=== PATIENT | female | born 1995 | race Caucasian/White ===

== ENCOUNTER 2020-11-11 09:27 | Emergency (ER) | payer OTHER, SELFPAY ==
[2020-11-11 09:32] VITALS: BP 125/69; PULSE 87; RESP 20; TEMP 36.8; O2SAT 100
--- NOTE | 2020-11-11 10:31 | ED.SKABFB ---
HPI - Skin/Abscess/Foreign Bdy General Chief complaint: Skin/Abscess/Foreign Body Stated complaint: Swelling on left inner thigh, boil Time Seen by Provider: 11/11/20 09:45 Source: patient and RN notes reviewed History of Present Illness HPI narrative: 25 year old female who present to express care with complaints of having boil type of lesion to her left upper inner thigh for the past 1 week duration. Patient reports that last evening area open and drained purulent matter, has been applying antibiotic ointment to area. Patient denies any fevers, chills or sweats, denies any nausea or vomiting or diarrhea. Patient reports that pain is 7/10 to area and describes pain as throbbing. MD complaint: abscess/boil Related Data Allergies Allergy/AdvReac Type Severity Reaction Status Date / Time No Known Allergies Allergy Verified 11/11/20 09:49 Review of Systems Review of Systems: CONSTITUTIONAL: Denies fever, chills, or sweats. EYES: Denies visual changes, redness, or discharge. ENT: Denies rhinorrhea, congestion, sore throat, or otalgia. CARDIOVASCULAR: Denies chest pain, palpitations, or edema. RESPIRATORY: Denies cough or dyspnea. GASTROINTESTINAL: Denies abdominal pain, nausea, vomiting, or diarrhea. GENITOURINARY: Denies dysuria or hematuria. SKIN: Positive for boil type of lesion to left upper inner thigh. MUSCULOSKELETAL:Chronic neck and back pain,no other stated joint pain, or myalgia. NEUROLOGIC: Denies headache, numbness, or weakness. PSYCHIATRIC: Denies anxiety or depression. All systems reviewed & are unremarkable except as noted in HPI and below PMFSH Past Medical History Medical History (Updated 11/13/20 @ 09:40 by Lakisha Faustin NP) DDD (degenerative disc disease) Ruptured disc, cervical Ruptured lumbar disc Spinal stenosis Surgical History Surgical History (Updated 11/13/20 @ 09:31 by Lakisha Faustin NP) Previous section X2 Family History Family History (Updated 11/13/20 @ 09:32 by Lakisha Faustin NP) Mother Hypertension Social History Social History (Updated 11/13/20 @ 09:32 by Lakisha Faustin NP) Smoking packs per day: 0.5 Smoking cigarettes per day: 10.0 Years smoked: 10 Smoking pack-years: 5.00 Smoking status: Current every day smoker Tobacco type: cigarettes Alcohol intake: current Alcohol use details: social Substance use: current Substance use type: marijuana Living arrangements: with family Gender identity (if verbalized by the patient): Female Comments At time of signature, agree with nursing past medical, surgical, social and family history. There is no relevant family history pertinent to the presenting complaint Exam Narrative: GENERAL: Well-appearing, well-nourished, and in no acute distress. HEAD: Normocephalic, atraumatic. EYES: PERRLA and EOMI. ENT: Nares clear, no rhinorrhea or epistaxis. Mucous membranes moist.TM's norml with good light reflex, throat pink with no lesions or exudates no tonsil enlargement. NECK: Supple.no lymphadenopathy CHEST: Clear to auscultation. No respiratory distress.SAO2 100% on room air HEART: Regular rate and rhythm. No murmur heard. Normal peripheral pulses. ABDOMEN: Soft, nontender, nondistended, normal active bowel sounds. EXTREMITIES: Normal range of motion. No edema.Chronic neck and lumbar back pain, moves all extremities on own power with no stated numbness or tingling at present time, strong pulses. SKIN: Warm, dry, [id number] red area to left inner thigh with 0.5cm open lesion with minimal purulent drainage from area at present time, no induration of surrounding tissue or acute warmth. NEURO: No focal deficits. Alert and oriented x3. Course Vital Signs Vital signs: Vital Signs Temperature 36.8 C 11/11/20 09:32 Pulse Rate 87 11/11/20 09:32 Respiratory Rate 20 11/11/20 09:32 Blood Pressure 125/69 11/11/20 09:32 Pulse Oximetry 100 11/11/20 09:32 Temperature 36.8 C 11/11/20
== END 2020-11-11 10:42 | disposition home or self-care (01) ==
PROVIDERS: Emergency Provider Registered Nurse
DX: L02.224 Furuncle of groin (principal); F17.210 Nicotine dependence, cigarettes, uncomplicated; M48.00 Spinal stenosis, site unspecified
CPT/HCPCS: 99213; G0463

== ENCOUNTER 2021-03-07 14:32 | Emergency (ER) | payer OTHER, SELFPAY ==
[2021-03-07 14:37] VITALS: BP 133/73; PULSE 93; RESP 16; TEMP 37.3; O2SAT 99
--- NOTE | 2021-03-07 14:47 | ED.SKABFB ---
HPI - Skin/Abscess/Foreign Bdy General Chief complaint: Skin/Abscess/Foreign Body Stated complaint: right leg inner thigh boil Time Seen by Provider: 03/07/21 14:47 Source: patient and RN notes reviewed History of Present Illness HPI narrative: Patient is a 25-year-old female who presents to the urgent care with complaints of a abscess to the right inner thigh. Patient states that she noticed approximately 2 or 3 days ago and she has been using her mupirocin cream on the area and cleaning it with the prescription cleanser. Patient denies of any fever, chills, nausea or vomiting. Patient states that she may be and her last period was in December. Patient was also on Bactrim in October. No other acute complaints. No acute distress noted. Patient aware the plan of care. Some parts of this dictation were generated by voice recognition software and may contain typographical and/or grammatical inaccuracies. Related Data Allergies Allergy/AdvReac Type Severity Reaction Status Date / Time No Known Allergies Allergy Verified 03/07/21 14:47 Review of Systems Review of Systems: CONSTITUTIONAL: Denies fever, chills, or sweats. EYES: Denies visual changes, redness, or discharge. ENT: Denies rhinorrhea, congestion, sore throat, or otalgia. CARDIOVASCULAR: Denies chest pain, palpitations, or edema. RESPIRATORY: Denies cough or dyspnea. GASTROINTESTINAL: Denies abdominal pain, nausea, vomiting, or diarrhea. GENITOURINARY: Denies dysuria or hematuria. SKIN: Reports of an abscess to the right inner thigh MUSCULOSKELETAL: Denies back pain, joint pain, or myalgia. NEUROLOGIC: Denies headache, numbness, or weakness. All other systems reviewed are negative, except as documented in HPI. [facility] Past Medical History Medical History (Updated 03/07/21 @ 15:02 by KRISTIN Muller) DDD (degenerative disc disease) Ruptured disc, cervical Ruptured lumbar disc Spinal stenosis Surgical History Surgical History (Updated 11/13/20 @ 09:31 by Lakisha Faustin NP) Previous section X2 Family History Family History (Updated 11/13/20 @ 09:32 by Lakisha Faustin NP) Mother Hypertension Social History Social History (Updated 11/13/20 @ 09:32 by Lakisha Faustin NP) Smoking packs per day: 0.5 Smoking cigarettes per day: 10.0 Years smoked: 10 Smoking pack-years: 5.00 Smoking status: Current every day smoker Tobacco type: cigarettes Alcohol intake: current Alcohol use details: social Substance use: current Substance use type: marijuana Gender identity (if verbalized by the patient): Female Comments At the time of my signature, I reviewed and agree with the nursing past medical, surgical, social, and family history. There is no relevant family history pertinent to the patient complaint. Exam Narrative: GENERAL: This is a well-nourished, well-developed patient, in no apparent distress. HEAD: normocephalic, atraumatic. EYES: PERRL. Sclera clear/white. Vision is grossly intact. EARS: External ears normal NOSE: External nose normal with no obvious nasal discharge, nares without redness, no rhinorrhea. THROAT: Mucous membranes moist NECK: Neck supple CARDIOVASCULAR: Regular rate and rhythm without murmurs, gallops, or rubs. RESPIRATORY: Clear to auscultation. Breath sounds equal bilaterally. No wheezes, rales, or rhonchi. SKIN: 7 x 7 cm area of firm erythemic nonfluctuant abscess to the right medial thigh, 4 cm center NEURO: awake, alert, and oriented to person, place and time. There were no obvious focal neurologic abnormalities. EXTREMITIES: No clubbing, cyanosis, or edema. Course Course Level of Care: Express Care Visit Vital Signs Vital signs: Vital Signs Temperature 99.1 F 03/07/21 14:37 Pulse Rate 93 03/07/21 14:37 Respiratory Rate 16 03/07/21 14:37 Blood Pressure 133/73 03/07/21 14:37 Pulse Oximetry 99 03/07/21 14:37 Temperature 99.1 F 03/07/21 14
== END 2021-03-07 15:05 | disposition home or self-care (01) ==
PROVIDERS: Emergency Provider Nurse Practitioner Family
DX: O99.719 Diseases of the skin and subcutaneous tissue complicating pregnancy, unspecified trimester (principal); Z3A.00 Weeks of gestation of pregnancy not specified; L02.415 Cutaneous abscess of right lower limb; F17.210 Nicotine dependence, cigarettes, uncomplicated; M48.00 Spinal stenosis, site unspecified
CPT/HCPCS: 81003; 81025; 99213; G0463

== ENCOUNTER 2021-05-23 09:02 | Emergency (ER) | payer OTHER, SELFPAY ==
[2021-05-23 09:04] VITALS: BP 111/66; PULSE 85; RESP 20; TEMP 37.1; O2SAT 100
--- NOTE | 2021-05-23 09:41 | ED.SKABFB ---
HPI - Skin/Abscess/Foreign Bdy General Chief complaint: Skin/Abscess/Foreign Body Stated complaint: Skin Sore Time Seen by Provider: 05/23/21 09:30 Source: patient, RN notes reviewed and old records reviewed Mode of arrival: ambulatory Limitations: no limitations History of Present Illness HPI narrative: 25 year old female who presents to [facility] care with complaints of 2 day history of right inner groin abscess with surrounding redness with warmth. Patient has noted [id number] open draining lesion of purulent yellowish tinged drainage surrounding redness total of 15cm X 10cm of red warm tissue with no induration. Patient denies any known fevers, chills, or sweats. Patient states that she has been taking Tylenol for her discomfort. Patient has history of previous groin abscesses. MD complaint: abscess/boil (Right upper inner thigh) Onset (ago): day(s) (2) Related Data Home Medications Medication Instructions Recorded Confirmed baclofen 10 mg PO TID 05/23/21 05/23/21 Allergies Allergy/AdvReac Type Severity Reaction Status Date / Time No Known Allergies Allergy Verified 05/23/21 09:37 Review of Systems Review of Systems: CONSTITUTIONAL: Denies fever, chills, or sweats. EYES: Denies visual changes, redness, or discharge. ENT: Denies rhinorrhea, congestion, sore throat, or otalgia. CARDIOVASCULAR: Denies chest pain, palpitations, or edema. RESPIRATORY: Denies cough or dyspnea. GASTROINTESTINAL: Denies abdominal pain, nausea, vomiting, or diarrhea. GENITOURINARY: Denies dysuria or hematuria. SKIN: Positive for abscess to right upper inner thigh with purulent drainage with surrounding redness with discomfort to area. MUSCULOSKELETAL:Chronic back pain, joint pain, or myalgia. NEUROLOGIC: Denies headache, numbness, or weakness. PSYCHIATRIC: Denies anxiety or depression. All systems reviewed & are unremarkable except as noted in HPI and below PMFSH Past Medical History Medical History (Updated 05/23/21 @ 09:59 by Lakisha Faustin NP) DDD (degenerative disc disease) Ruptured disc, cervical Ruptured lumbar disc Spinal stenosis Surgical History Surgical History (Updated 11/13/20 @ 09:31 by Lakisha Faustin NP) Previous section X2 Family History Family History (Updated 11/13/20 @ 09:32 by Lakisha Faustin NP) Mother Hypertension Social History Social History (Updated 11/13/20 @ 09:32 by Lakisha Faustin NP) Smoking packs per day: 0.5 Smoking cigarettes per day: 10.0 Years smoked: 10 Smoking pack-years: 5.00 Smoking status: Current every day smoker Tobacco type: cigarettes Alcohol intake: current Alcohol use details: social Substance use: current Substance use type: marijuana Gender identity (if verbalized by the patient): Female Exam Narrative: GENERAL: Well-appearing, well-nourished, and in no acute distress. HEAD: Normocephalic, atraumatic. EYES: PERRLA and EOMI. ENT: Nares clear, no rhinorrhea or epistaxis. Mucous membranes moist.TM's normal with good light reflex, throat normal with no lesions or exudates or any tonsil swelling NECK: Supple.no lymphadenopathy CHEST: Clear to auscultation. No respiratory distress.SAO2 100% on room air HEART: Regular rate and rhythm. No murmur heard. Normal peripheral pulses. ABDOMEN: Soft, nontender, nondistended, normal active bowel sounds. EXTREMITIES: Normal range of motion. No edema. SKIN: Warm, dry, 15cm X 10cm red area to the inner right groin which is warm with no induration with inner 1cm X 1cm draining abscess of yellowish purulent drainage, site is painful. NEURO: No focal deficits. Alert and oriented x3. Course Course Level of Care: Express Care Visit Vital Signs Vital signs: Vital Signs Temperature 37.1 C 05/23/21 09:04 Pulse Rate 85 05/23/21 09:04 Respiratory Rate 20 05/23/21 09:04 Blood Pressure 111/66 05/23/21 09:04 Pulse Oximetry 100 05/23/21 09:04 Temperature 37.1 C 05/23/21 09:04
== END 2021-05-23 10:07 | disposition home or self-care (01) ==
PROVIDERS: Emergency Provider Registered Nurse
DX: L02.415 Cutaneous abscess of right lower limb (principal); L03.115 Cellulitis of right lower limb; F17.210 Nicotine dependence, cigarettes, uncomplicated; M48.00 Spinal stenosis, site unspecified
CPT/HCPCS: 99213; G0463

== ENCOUNTER 2023-04-09 13:23 | Emergency (ER) | payer OTHER, SELFPAY ==
[2023-04-09 13:28] VITALS: BP 135/58; PULSE 76; RESP 20; TEMP 36.8; O2SAT 100
--- NOTE | 2023-04-09 13:32 | ED.URI ---
HPI - URI/Sore Throat General Chief Complaint: Upper Respiratory Infection Stated Complaint: headaches/rattling throat Time Seen by Provider: 04/09/23 13:32 Source: patient, RN notes reviewed and old records reviewed Mode of arrival: ambulatory Limitations: no limitations History of Present Illness HPI Narrative: 27 year old female presents to [facility] care with complaints of continued cough and congestion after having Influenza 2 weeks ago. Patient reports that she is expectorating some yellowish green mucous at times. denies any known recent fevers.chills or sweats, denies any nausea or vomiting or diarrhea. Patient reports no sore throat, admits to sinus drainage and sinus pressure and has taken some Sudafed for those symptoms without relief, has had some headache discomfort for which she has taken Tylenol and Ibuprofen. MD elicited complaint: cough and other (congestion) Pertinent past history: other (influenza 2 weeks ago, tobacco use) Severity: moderate Able to tolerate fluids by mouth: Yes Treatments prior to arrival: acetaminophen, ibuprofen and other (Sudafed ) Related Data Allergies Allergy/AdvReac Type Severity Reaction Status Date / Time No Known Allergies Allergy Verified 05/23/21 09:37 Review of Systems Review of Systems: CONSTITUTIONAL: Denies malaise, chills, sweats, or fever. EYES: Denies visual changes, redness, or discharge. ENT: Reports rhinorrhea, congestion, sinus pain,no otalgia and no sore throat. CARDIOVASCULAR: Denies chest pain, palpitations, or edema. RESPIRATORY: Reports cough.? Denies dyspnea. GASTROINTESTINAL: Denies abdominal pain, nausea, vomiting, diarrhea SKIN: Denies rash or itching. MUSCULOSKELETAL: Denies myalgia. NEUROLOGIC: Denies headache. All systems reviewed & are unremarkable except as noted in HPI and below PMFSH Past Medical History Medical History (Updated 04/10/23 @ 00:01 by Ayesha Hobbs) DDD (degenerative disc disease) Ruptured disc, cervical Ruptured lumbar disc Spinal stenosis Surgical History Surgical History (Updated 11/13/20 @ 09:31 by Lakisha Faustin NP) Previous section X2 Family History Family History (Updated 11/13/20 @ 09:32 by Lakisha Faustin NP) Mother Hypertension Social History Social History (Updated 11/13/20 @ 09:32 by Lakisha Faustin NP) Smoking packs per day: 0.5 Smoking cigarettes per day: 10.0 Years smoked: 10 Smoking pack-years: 5.00 Smoking status: Current every day smoker Tobacco type: cigarettes Alcohol intake: current Alcohol use details: social Substance use: current Substance use type: marijuana Living arrangements: with family Gender identity (if verbalized by the patient): Female Comments At time of signature, agree with nursing past medical, surgical, social and family history. There is no relevant family history pertinent to the presenting complaint Exam Narrative: GENERAL: Well-appearing, well-nourished, and in no acute distress. HEAD: Normocephalic EYES: PERRLA, conjunctivae clear ENT: Nares clear, turbinates edematous and erythematous, clear discharge. Mucous membranes moist. TM pearly murphy with dull light reflex bilaterally; no tragal tenderness. Oropharynx erythematous without lesions. Tonsils not enlarged and without exudate, no drooling, no hoarseness, no trismus, uvula midline. NECK: Supple. No lymphadenopathy CHEST: Clear to auscultation, breath sounds equal. No wheezing, rhonchi, rales, or stridor. No respiratory distress, speaks in full sentences.productive cough,SAO2 100% on room air HEART: Regular rate and rhythm. No murmur heard. SKIN: Warm, dry, no rash. NEURO: Alert and oriented x3. PSYCH: Normal mood and affect Course Course Emergency Course: Patient is aware of diagnosis, understands and agrees to treatment plan.? Anticipatory guidance given.? Patient agrees to follow-up as directed and is aware of reasons to
== END 2023-04-09 13:50 | disposition home or self-care (01) ==
PROVIDERS: Emergency Provider Registered Nurse
DX: J06.9 Acute upper respiratory infection, unspecified (principal); R05.9 Cough, unspecified; F17.210 Nicotine dependence, cigarettes, uncomplicated; F12.90 Cannabis use, unspecified, uncomplicated; M48.00 Spinal stenosis, site unspecified
CPT/HCPCS: 99213; G0463

== ENCOUNTER 2024-11-30 09:31 | Emergency (ER) | payer OTHER, SELFPAY ==
[2024-11-30 09:44] VITALS: BP 122/59; PULSE 86; RESP 18; TEMP 36.2; O2SAT 99
--- OUTSIDE RECORDS SUMMARY | 2024-11-30 10:00 | XMS_ITS | Clinical Summary ---
Author Organization [facility] Address [address] [place] [address] Phone Care Team Providers Care Courtroom Deputy Or Calendar Clerk Name Role Phone Unavailable Primary Care Provider Unavailabl e Allergies Active Allergy Reactions Criticality Noted Date Comments Metoclopramide Anxiety 08/16/2021 Medications traMADol (ULTRAM) 50 MG Tablet Take 1 Tab by mouth daily as needed for Pain. 30 Tab 0 04/13/19 17 Active Additional Information Patient not taking.Reported on 10/06/2017 IBUPROFEN PO Take by mouth as needed. Active Etonogestrel (NEXPLANON) 68 MG Implant by Subcutaneous route. Active ondansetron (ZOFRAN) 4 MG Tablet Take 1 Tab by mouth every 8 hours as needed for Nausea - 2nd line. 12 Tab 10/07/19 18 Active Additional Information Patient not taking.Reported on 08/22/2019 polyethylene glycol (GLYCOLAX, MIRALAX) 17 g PackIndications :Hemorrhoids, unspecified hemorrhoid type Take 1 Packet by mouth daily. Dissolve in 4-8 oz of liquid. 30 Packet 08/22/19 20 Active Hydrocort-Pramo xine, Perianal, (PROCTOFOAM HC) 1-1 % FoamIndications :Hemorrhoids, unspecified hemorrhoid type 1 Applicator by Rectal route every 12 hours. 10 g 08/22/19 20 Active hydrocortisone (ANUSOL-HC) 25 MG SuppositoryIndi cations:Hemorrh oids, unspecified hemorrhoid type 25 mg by Rectal route every 12 hours. 40 Suppository 08/22/19 20 Active ondansetron (ZOFRAN) 4 MG Tablet Take 1-2 Tablets by mouth every 8 hours as needed for Nausea - 1st line. 10 Tablet 08/17/19 Active Active Problems Problem Noted Date Diagnosed Date Chronic pain syndrome 04/13/2016 Chronic low back pain with sciatica 04/13/2016 Family history of hypertension 04/13/2016 Tobacco abuse 04/13/2016 Immunizations Immunization Administration Dates Next Due DTAP VACCINE 08/31/1999,01/10/1996 DTP-Hib 01/28/1995,1994,1994 Hepatitis B Vaccine,unspecified Formulation 09/1995,1994,1994 Hib Vaccine,unspecified Formulation 10/10/1995 Inactivated Polio Vaccine 08/31/1999 MMR Vaccine 08/31/1999,10/10/1995 Meningococcal Vaccine 11/06/2008 OPV 01/10/1996,1994,1994 TDAP Vaccine 11/06/2008 Family History Medical History Relation Name Comments Hypertension Mother Relation Name Status Comments Mother Alive Social History Tobacco Use Types Packs/Day Years Used Date Smoking Tobacco: Every Day Cigarettes Smokeless Tobacco: Never Tobacco Cessation:Ready to Q uit: No; Counseling Given: No Alcohol Use Standard Drinks/Week Comments Yes 0 (1 standard drink = 0.6 oz pur e alcohol) Comments No Sex and Gender Information Value Date Recorded Sex Assigned at Not on file Legal Sex Female 9:28 PM CDT Gender Identity Not on file Sexual Orientation Not on file Last Filed Vital Signs Vital Sign Reading Time Taken Comments Blood Pressure 136/78 08/16/2021 7:10 PM CDT Pulse 88 08/16/2021 7:10 PM CDT Temperature 36.1 C (97 F) 08/16/2021 4:25 PM CDT Respiratory Rate 20 08/16/2021 7:10 PM CDT Oxygen Saturation 100% 08/16/2021 7:10 PM CDT Inhaled Oxygen Concentration - - Weight 81.6 kg (180 lb) 08/16/2021 4:25 PM CDT Height 162.6 cm (5' 4) 08/16/2021 4:25 PM CDT Body Mass Index 30.9 08/16/2021 4:25 PM CDT Plan of Treatment Health Maintenance Due Date Last Done Comments Hepatitis C Virus (HCV) Screening 1994 Pap Smear 07/29/2015 Human Papillomavirus (HPV) Immunization (1 - 3-dose SCDM series) 2021 Cervical Cancer Screening (CCS) 2024 HPV/Cotest 2024 Influenza Immunization (#1) 2024 SARS-COV-2 Immunization ( - season) 2024 DTaP/Tdap/Td Immunization (8 - Td or Tdap) 10/17/2025 10/18/2015, 11/06/2008, 08/31/1999, Additional history exists Td Immunization Every 10 Years (Adults With 1 Tdap) 10/17/2025 10/18/2015, 11/06/2008 Respiratory Syncytial Virus (RSV) Immunization (Adult) (1 - 1-dose 75+ series) 2069 Hepatitis B Immunization Completed 996, 1994, 1994 Meningococcal Immunization (ACWY) Aged Out 11/06/2008 No longer eligible based on patient's age to complete this topic Pneumococcal Immunization Combined Aged Out No longer eligible based on patient's age to complete this topic Rotavirus Immunization Aged Out No lo nger eligible based on patient's age to complete this topic Insurance [place]
--- OUTSIDE RECORDS SUMMARY | 2024-11-30 10:00 | XMS_ITS | Clinical Summary ---
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 Phone No, Physician Primary Care Provider [phone] Allergies No known active allergies Medications cyclobenzaprine (FLEXERIL) 10 mg tabletIndications:M uscle Spasm Take 1 tablet (10 mg total) by mouth 3 (three) times a day as needed for muscle spasms 15 tablet 1 Active acetaminophen (TYLENOL) 325 mg tablet Take 2 tablets (650 mg total) by mouth every 6 (six) hours as needed for pain 30 tablet 1 Active HYDROcodone-acetami nophen (NORCO) 5-325 mg per tabletIndications:P ain Take 1 tablet by mouth every 6 (six) hours as needed for pain 12 tablet 1 Active dicyclomine (BENTYL) 10 mg capsule Take 1 capsule (10 mg total) by mouth 4 (four) times a day as needed (Cramps) 20 capsule 1 Active ondansetron ODT (ZOFRAN-ODT) 4 mg disintegrating tablet Take 1 tablet (4 mg total) by mouth every 8 (eight) hours as needed for nausea or vomiting 20 tablet 2 Active Active Problems Problem Noted Date Diagnosed Date Chronic low back pain with sciatica 04/13/2016 Vomiting and diarrhea 04/05/2014 Overview (05/21/2016): Diarrhea No pathologic diagnosis 02/28/2013 Overview (05/19/2016): No diagnosis Immunizations Immunization Administration Dates Next Due MMR 10/18/2015 Tdap 10/18/2015 Surgical History Surgery Date Site/Laterality Comments OTHER SURGICAL HISTORY 2013 : Medical History Medical History Date Comments Hx Other Medical ; Outc ome: 39W4D week 6lb(s) 9 oz Male Family History Medical History Relation Name Comments Breast cancer Maternal Grandmother Relation Name Status Comments Maternal Grandmother Social History Tobacco Use Types Packs/Day Years Used Date Smoking Tobacco: Every Day Cigarettes Tobacco Cessation:Ready to Q uit: Not Asked; Counseling Given: Not Answered Alcohol Use Standard Drinks/Week Comments No 0 (1 standard drink = 0.6 oz pur e alcohol) PHQ-2 Answer Date Recorded PHQ-2 Score 0 04/03/2019 Personal Safety Answer Date Recorded Have you ever been in or are you currently in a harmful physical or emotional relationship or is someone making you feel afraid or unsafe? 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 Gender Identity Not on file Sexual Orientation Not on file Obstetrics History Para Term AB IAB SAB Ectopic Multiple Livin g Live Births 5 2 2 2 1 1 2 2 Date Outcome GA Total Labor Labor/2nd/3rd Weight Sex Type Anes PTL Yadira A1 A5 Name Clin 2013 Term 39w 3d CS-LT ranv Spinal LivAllen Eaton MD Complications:Premature Rupt ure of Membranes Delivery Location:This [facility] ity 2014 SAB SAB 2015 Term 40w 0d CS-LT ranv Spinal LivAllen Eaton MD Delivery Location:[facility] 2020 IAB 5w3 d D&C Last Filed Vital Signs Vital Sign Reading Time Taken Comments Blood Pressure 132/84 11/22/2023 7:51 AM CDT Pulse 90 11/22/2023 7:51 AM CDT Temperature 36.6 C (97.9 F) 11/22/2023 7:51 AM CDT Respiratory Rate 18 11/22/2023 7:51 AM CDT Oxygen Saturation 89% 11/22/2023 7:51 AM CDT Inhaled Oxygen Concentration - - Weight 99.8 kg (220 lb) 11/22/2023 7:51 AM CDT Height 162.6 cm (5' 4) 11/22/2023 7:51 AM CDT Body Mass Index 37.76 11/22/2023 7:51 AM CDT Plan of Treatment Health Maintenance Due Date Last Done Comments Depression Screening 1994 Pneumococcal vaccine <65 (1 of 2 - PCV) 2013 Varicella Vaccines (1 of 2 - 13+ 2-dose series) 11/15/2015 Cervical Cancer Screening 04/03/2020 04/03/2019 Regular Well Visit/Exam 18-64 04/03/2020 04/03/2019 HPV Vaccines (1 - 3-dose SCD M series) 2021 Influenza Vaccine (#1) 2024 DTaP/Tdap/Td Vaccine (8 - Td or Tdap) 10/17/2025 10/18/2015, 11/06/2008, 08/31/1999, Additional history exists Hepatitis B Screening Completed 04/22/1995 , 1994, 1994 Hepatitis C Screening Completed 09/26/2015, 014 Procedures Procedure Name Priority Date/Time Associated Diagnosis Comments THINPREP TIS PAP REFLEX HPV MRNA E6/E7, CHLAMYDIA/N.GONORR HOEAE Routine 04/03/2019 10:57 AM 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 Bx [facility] Comment:INFORMATION NOT PROV IDED SOURCE: [facility] Comment:Information not prov ided Pap, specimen adequacy [facility] Comment: Satisfactory for evaluation. Endocervical/transformation zone component present. Age and/or menstrual status not provided HPV interp [facility] Comment:Negative for intraep ithelial lesion or malignancy. COMMENTS [facility] Comment: This Pap test has been evaluated with computer assisted technology. 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 [address] Comment [facility] Comment: EXPLANATORY NOTE: The Pap is a screening test for cervical cancer. It is not a diagnostic test and is subject to false negative and false positive results. It is most reliable when a satisfactory sample, regularly obtained, is submitted with relevant clinical findings and history, and when the Pap result is evaluated along with historic and current clinical information. C. trachomatis RNA NOT DETECTED NOT DETECTED [facility] [place] N. gonorrhoeae RNA NOT DETECTED NOT DETECTED [facility] [place] Comment [facility] Comment: The analytical performance characteristics of this assay, when used to test SurePath(TM) specimens have been determined by [employer]. The modifications have not been cleared or approved by the FDA. This assay has been validated pursuant to the CLIA regulations and is used for clinical purposes. For additional information, please refer to https://education.iOnRoad/faq/SZP214 (This link is being provided for information/ educational purposes only.) Endocervical 04/03/2019 10:5 7 AM CANINE SERVICE TEACHER 04/04/2019 5:13 AM CANINE SERVICE TEACHER Narrative Resulting Agency Comment Performing Organization Information: Site ID: [id number] [facility] Address: [address] [place] [id number] Director: Jack Boyer D.O., MPH Site ID: [facility]: [facility] Address: [address] [place] [address] Director: Mariela Abbott Ofe Mabry NP LAB PATHOLOGY ORDERABLES Final R esult [facility] [place] [place] * Serum Hepatitis C ab (09/26/2015 2:08 PM CDT) HCV ab Negative Negative CDR HISTOR ICAL RESULTS Serum 09/26/2015 2:08 PM CDT Allen Rosales MD LAB BLOOD ORDERABLES Final Result CDR HISTORICAL RESULTS from Last 3 Months or Most Recently Relevant to Health Maintenance Insurance [facility] Care Teams Tool And Die Assembler Relationship Specialty Start Date End Date No, Physician PCP - General 08/29/16
--- OUTSIDE RECORDS SUMMARY | 2024-11-30 10:00 | XMS_ITS | Patient Health Record ---
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 Name Role Phone Mayito Reina Unavailable [phone] Allergies Allergen (clinical drug ingredient) Drug/Non Drug Allergy documented on EMR Reaction Allergy Type Onset Date Status metoclopramide Reglan panic attack Drug Allergy Active Reason For Referral No Information Medications Medication SIG (Take, Route, Fr equency, Duration) Notes Start Date End Date Status Baclofen 10 MG 1 tablet with food o r milk Orally Three times a day; Duration: 30 day(s) 05/12/2021 Active Social History Tobacco Use: Social History Observation Description Date Details (start date - stop date) Current Smoker NA - NA Tobacco Use/Smoking Question Answer Notes Are you a current smoker Problems Problem Type SNOMED Code ICD Code Onset Dates Problem Status W/U Status Risk Notes Problem Cervicalgia (32258539) Cervicalgia (M54.2) Active confirmed Problem Myositis (07275372) Other myositis, 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
--- OUTSIDE RECORDS SUMMARY | 2024-11-30 10:04 | XMS_ITS | Data Portability ---
Author Organization [facility] RAMONAJerilyn Dela Cruz [facility] Address [address] [place] [address] Assessment Encounter Date Assessment Date Assessment LastModified by Organization Details LastModified Time 04/18/2023 04/18/2023 Pt's case was discussed w/resident. Documentation was reviewed, and I agree w/resident's note. Dr. Burch [email or web address] Not available 05/02/2023 06:45:28 Plan of Treatment Reminders Order Date Submit Date Provider Last Modified By Organization Details Last Modified Time Details Appointments None recorded. Lab HbA1c (hemoglob in A1c), blood 2023 024 etodaroma [facility], [address] [place] [address], [address], [place], [address], 5 09:24:37 CMP, serum or plasma 2023 024 ERIC [facility], [address] [place] [address], [address], [place], [address], 4 07:13:49 lipid panel, serum 2023 024 ERIC [facility], [address] [place] [address], [address], [place], [address], 4 07:13:48 TSH, ultra-sen sitive, serum 2023 024 ERIC [facility], [address] [place] [address], [facility] [address], [place], [address], 4 13:11:39 urinalysi s, dipstick 2023 024 ERIC In-Office Order, Internal Use Only DO Not Attach Compendium DO Not Attach Compendium, Do Not Delete/merge, [id number] 10:45:52 HbA1c (hemoglob in A1c), blood 2023 024 ERIC In-Office Order, Internal Use Only DO Not Attach Compendium DO Not Attach Compendium, Do Not Delete/merge, [id number] 10:45:26 CMP, serum or plasma 2023 024 PENROSE [facility], [address] [place] [address], [address], [place], [address], 4 13:11:38 Referral dermatolo gist referral 2023 024 elvira Galaviz MD, [address] [facility], [place], [address], 5 13:16:06 Procedures None recorded. Surgeries None recorded. Imaging electroca rdiogram 2023 024 In-Office Order, Internal Use Only DO Not Attach Compendium DO Not Attach Compendium, Do Not Delete/merge, [id number] 14:41:42 Medication Orders doxycycli ne monohydra te 100 mg capsule 2024 025 [id number], [address] [place], [place], [id number], 5 12:47:03 spironola ctone 50 mg tablet 2024 025 [facility][id number], [address] [place], [place], [id number], 5 12:47:03 doxycycli ne monohydra te 100 mg capsule 2023 [facility] #[id number], [address], [place], [id number], 5 12:06:17 hydrocort isone 2.5 % topical cream with perineal applicato r 2023 ERIC [facility] #02558, [address], [place], [id number], 12:29:32 Preparati on H Rapid Relief-Li docaine 5 %-0.25 %-14.4 %-15 % top cream 2023 [facility], [address], [place], [id number], 12:06:33 fluticaso ne propionat e 50 mcg/actua tion nasal spray,ira pension 2023 [employer] [facility] #[id number], [address] [place], [place], [id number], 11:13:49 Patient TargetsNo targets recorded. Patient Instructions Encounter Date Encounter Id Patient Instructions Last Modified By Organization Details Last Modified Time 04/18/2023 [id number] A healthy lifestyle: care instructions [email or web address] Not available 04/18/2023 15:45:50 11/23/2023 [id number] Attending Physician Attestation I personally saw and examined the patient with the resident. I have reviewed the documentation and agree with the history, physical findings, work-up, and medical decision making as recorded. Kailee Pitt MD mmetias Not available 11/23/2023 12:26:32 01/30/2024 [id number] A healthy lifestyle: care instructions [email or web address] Not available 01/30/2024 12:56:28 I saw the patien t with the resident. I agree with the resident's assessment and plan as documented Deepa Sullivan MD Not available 01/30/2024 13:02:11 02/29/2024 [id number] Attending Physician Attestation I did not personally see or examine the patient with the resident. I was physically present to provide indirect supervision through entire encounter. I have reviewed the documentation and agree with the history, physical findings, work-up, and medical decision making as recorded. Kailee Pitt MD [email or web address] Not available 03/05/2024 16:52:51 06/21/2024 [id number] I was present fo r the procedure and agree with the documented procedure and plan. Deepa Sullivan MD Not available 06/21/2024 11:36:38 Reason for Referral Relief Charge Nurse Referral for H idradenitis suppurativa Referring Physician: Hailey Garay, Despatching And Receiving Clerk, Encounter Date: 01/30/2024 Results Created Date Observation Date Name Description Value Unit Range Abnormal Flag Note LastModifiedBy Organization Detail LastModifiedTime 04/18/19 24 04/19/2023 COMP. METAB OLIC PANEL (14) glucose 92 mg/dL 70-99 Not Available [facility] ([facility]) [address] [place], [address], 04/19/2023 13:11:38 04/18/19 24 04/19/2023 COMP. METAB OLIC PANEL (14) BUN 9 mg/dL 6-20 Not Available [facility] ([facility]) [address] [place], [address], 04/19/2023 13:11:38 04/18/19 24 04/19/2023 COMP. METAB OLIC PANEL (14) creatinine 0.69 mg/dL 0.57-1 .00 Not Available [facility] ([facility]) [address] [place], [address], 04/19/2023 13:11:38 04/18/19 24 04/19/2023 COMP. METAB OLIC PANEL (14) eGFR 121 mL/mi n/1.7 3 >59 Not Available [facility] ([facility]) [address] [facility], [place], [address], 04/19/2023 13:11:38 04/18/19 24 04/19/2023 COMP. METAB OLIC PANEL (14) BUN/creatini ne ratio 13 9-23 Not Available [facility] ([facility]) [address] [place], [address], 04/19/2023 13:11:38 04/18/19 24 04/19/2023 COMP. METAB OLIC PANEL (14) sodium 140 mmol/ L 134-14 4 Not Available [facility] ([facility]) [address] [facility], [place], [address], 04/19/2023 13:11:38 04/18/19 24 04/19/2023 COMP. METAB OLIC PANEL (14) potassium 4.2 mmol/ L 3.5-5. 2 Not Available [facility] ([facility]) [address] [facility], [place], [address], 04/19/2023 13:11:38 04/18/19 24 04/19/2023 COMP. METAB OLIC PANEL (14) chloride 101 mmol/ L 96-106 Not Available [facility] ([facility]) [address] [place], [address], 04/19/2023 13:11:38 04/18/19 24 04/19/2023 COMP. METAB OLIC PANEL (14) carbon dioxide, total 23 mmol/ L 20-29 Not Available [facility] ([facility]) [address] [place], [address], 04/19/2023 13:11:38 04/18/19 24 04/19/2023 COMP. METAB OLIC PANEL (14) calcium 9.7 mg/dL 8.7-10 .2 Not Available [facility] ([facility]) [address] [place], [address], 04/19/2023 13:11:38 04/18/19 24 04/19/2023 COMP. METAB OLIC PANEL (14) protein, total 6.5 g/dL 6.0-8. 5 Not Available [facility] ([facility]) [address] [facility], [place], [address], 04/19/2023 13:11:38 04/18/19 24 04/19/2023 COMP. METAB OLIC PANEL (14) albumin 4.3 g/dL 4.0-5. 0 Not Available [facility] ([facility]) [address] [facility], [place], [address], 04/19/2023 13:11:38 04/18/19 24 04/19/2023 COMP. METAB OLIC PANEL (14) globulin, total 2.2 g/dL 1.5-4. 5 Not Available [facility] ([facility]) [address] [facility], [place], [address], 04/19/2023 13:11:38 04/18/19 24 04/19/2023 COMP. METAB OLIC PANEL (14) A/G ratio 2.0 1.2-2. 2 Not Available [facility] ([facility]) [address] [facility], [place], [address], 04/19/2023 13:11:38 04/18/19 24 04/19/2023 COMP. METAB OLIC PANEL (14) bilirubin, total 0.4 mg/dL 0.0-1. 2 Not Available [facility] ([facility]) [address] [facility] [place], [address], 04/19/2023 13:11:38 04/18/19 24 04/19/2023 COMP. METAB OLIC PANEL (14) alkaline phosphatase 78 IU/L 44-121 Not Available [facility] ([facility]) [address] [facility], [place], [address], 04/19/2023 13:11:38 04/18/19 24 04/19/2023 COMP. METAB OLIC PANEL (14) AST (SGOT) 15 IU/L 0-40 Not Available [facility] ([facility]) [address] [place], [address], 04/19/2023 13:11:38 04/18/19 24 04/19/2023 COMP. METAB OLIC PANEL (14) ALT (SGPT) 18 IU/L 0-32 Not Available [facility] ([facility]) [address] [place], [address], 04/19/2023 13:11:38 04/18/19 24 04/19/2023 TSH RFX ON ABNOR MAL TO FREE T4 TSH 1.690 uIU/m L 0.450- 4.500 Not Available [facility] ([facility]) [address] [place], [address], 04/19/2023 13:11:39 01/30/20 24 01/31/2024 LIPID PANEL cholesterol, total 159 mg/dL 100-19 9 Not Available [facility] ([facility]) [address] [place], [address], 01/31/2024 07:13:47 01/30/20 24 01/31/2024 LIPID PANEL triglyceride s 159 mg/dL 0-149 above high normal Not Available [facility] ([facility]) [address] [place], [address], 01/31/2024 07:13:47 01/30/20 24 01/31/2024 LIPID PANEL HDL cholesterol 40 mg/dL >39 Not Available [facility] ([facility]) [address] [place], [address], 01/31/2024 07:13:47 01/30/20 24 01/31/2024 LIPID PANEL VLDL cholesterol eusebio 28 mg/dL 5-40 Not Available [facility] ([facility]) [address] [facility], [place], [address], 01/31/2024 07:13:47 01/30/20 24 01/31/2024 LIPID PANEL LDL chol calc ([facility]) 91 mg/dL 0-99 Not Available [facility] ([facility]) [address] [facility], [place], [address], 01/31/2024 07:13:47 01/30/20 24 01/31/2024 COMP. METAB OLIC PANEL (14) glucose 79 mg/dL 70-99 Not Available [facility] ([facility]) [address] [facility] [place], [address], 01/31/2024 07:13:49 01/30/20 24 01/31/2024 COMP. METAB OLIC PANEL (14) BUN 4 mg/dL 6-20 below low normal Not Available [facility] ([facility]) [address] [place], [address], 01/31/2024 07:13:49 01/30/20 24 01/31/2024 COMP. METAB OLIC PANEL (14) creatinine 0.75 mg/dL 0.57-1 .00 Not Available [facility] ([facility]) [address] [place], [address], 01/31/2024 07:13:49 01/30/20 24 01/31/2024 COMP. METAB OLIC PANEL (14) eGFR 110 mL/mi n/1.7 3 >59 Not Available [facility] ([facility]) [address] [place], [address], 01/31/2024 07:13:49 01/30/20 24 01/31/2024 COMP. METAB OLIC PANEL (14) BUN/creatini ne ratio 5 9-23 below low normal Not Available [facility] ([facility]) [address] [place], [address], 01/31/2024 07:13:49 01/30/20 24 01/31/2024 COMP. METAB OLIC PANEL (14) sodium 140 mmol/ L 134-14 4 Not Available [facility] ([facility]) [address] [facility] [place], [address], 01/31/2024 07:13:49 01/30/20 24 01/31/2024 COMP. METAB OLIC PANEL (14) potassium 4.4 mmol/ L 3.5-5. 2 Not Available [facility] ([facility]) [address] [facility] [place], [address], 01/31/2024 07:13:49 01/30/20 24 01/31/2024 COMP. METAB OLIC PANEL (14) chloride 107 mmol/ L 96-106 above high normal Not Available [facility] ([facility]) [address] [facility], [address], 01/31/2024 07:13:49 01/30/20 24 01/31/2024 COMP. METAB OLIC PANEL (14) carbon dioxide, total 21 mmol/ L 20-29 Not Available [facility] ([facility]) [address] [facility] [place], [address], 01/31/2024 07:13:49 01/30/20 24 01/31/2024 COMP. METAB OLIC PANEL (14) calcium 9.4 mg/dL 8.7-10 .2 Not Available [facility] ([facility]) [address] [facility] [place], [address], 01/31/2024 07:13:49 01/30/20 24 01/31/2024 COMP. METAB OLIC PANEL (14) protein, total 5.8 g/dL 6.0-8. 5 below low normal Not Available [facility] ([facility]) [address] [facility], [address], 01/31/2024 07:13:49 01/30/20 24 01/31/2024 COMP. METAB OLIC PANEL (14) albumin 3.8 g/dL 4.0-5. 0 below low normal Not Available [facility] ([facility]) [address] [place], [address], 01/31/2024 07:13:49 01/30/20 24 01/31/2024 COMP. METAB OLIC PANEL (14) globulin, total 2.0 g/dL 1.5-4. 5 Not Available [facility] ([facility]) [address] [place], [address], 01/31/2024 07:13:49 01/30/20 24 01/31/2024 COMP. METAB OLIC PANEL (14) bilirubin, total 0.2 mg/dL 0.0-1. 2 Not Available [facility] ([facility]) [address] [place], [address], 01/31/2024 07:13:49 01/30/20 24 01/31/2024 COMP. METAB OLIC PANEL (14) alkaline phosphatase 63 IU/L 44-121 Not Available [facility]) [address] [place], [address], 01/31/2024 07:13:49 01/30/20 24 01/31/2024 COMP. METAB OLIC PANEL (14) AST (SGOT) 21 IU/L 0-40 Not Available [facility] ([facility]) [address] [place], [address], 01/31/2024 07:13:49 01/30/20 24 01/31/2024 COMP. METAB OLIC PANEL (14) ALT (SGPT) 17 IU/L 0-32 Not Available [facility] ([facility]) [address] [place], [address], 01/31/2024 07:13:49 02/26/19 25 02/28/2024 HEMOG LOBIN A1C hemoglobin A1C 5.5 % 4.8-5. 6 Predi abete s: 5.7 - 6.4 Diabe ashli: >6.4 Glyce nancy contr ol for adult s with diabe ashli: <7.0 Not Available [facility] ([facility]) [address] [facility], [place], [address], 02/28/2024 06:18:48 04/18/1904/25/2023 elect mattiejose ramon rossi am No observ ation record ed. In-Office Order Internal Use Only DO Not Attach Compendium DO Not Attach Compendium, Do Not Delete/merge, [id number] 04/25/2023 10:35:21 Result Notes None recorded. Problems Name Problem SNOMED Code Status Onset Date Resolution Date Notes Provider Name and Address Organization Details Recorded Time Hidradenitis suppurativa 60484202 Active 2022 Mitch Starks MD Attn: Accounting ,[address] [place], [address] , [facility] 3 18:58:25 Implantation of subcutaneous contraceptive Active 2022 Mitch Starks MD Attn: Accounting ,[address] [place], [address] , [facility] 18:58:27 Obesity 970362951 Active 2022 Mitch Starks MD Attn: Accounting ,[address] [place], [address] , [facility] 18:58:30 Foot callus 339643115 Active 2022 Mariajose Roberts MD Attn: Accounting ,[address] [place], [address] , [facility] 11:00:33 Problem Notes None recorded. Procedures Surgical History Date Name Laterality Status Provider Name and Address Organization Details Recorded Time Control Implant Removal completed Pete Jesus MD Attn: Accounting,[address] [place], [address], [facility] 06/21/2024 14:48:04 3 Generic Procedure completed Mariajose Roberts MD Attn: Accounting,[address] [facility], [place], [address], [facility] 09/23/2022 10:04:53 3 Date of Last Pap Smear completed Catherine Cruz MA [facility] 11/05/2022 10:21:53 3 Control Implant Insertion completed Mitch Starks MD Attn: Accounting,[address] [facility], [place], [address], [facility] 03/16/2022 15:54:46 6 Caesarean Section completed Jennie Kinney MA [facility] 10/24/2020 15:27:58 4 Caesarean Section completed Jennie Kinney MA [facility] 10/24/2020 15:27:53 Imaging Results None recorded. Procedure Notes None recorded. Medical Equipment None Reported. Allergies No known drug allergies Medications Name Sig Start Date Stop Date Status Note LastModified by Organization Details LastModified Time cyclobenz aprine 10 mg tablet TAKE 1 TABLET BY MOUTH IN THE EVENING 09/21 completed Not Available Not Available Not Available nicotine 14 mg/24 hr daily transderm al patch UNWRAP AND APPLY 1 PATCH TO THE SKIN EVERY DAY 09/21 completed haven't started yet 03/08 Not Available Not Available Not Available cetirizin e 10 mg tablet 04/17 completed Not Available Not Available Not Available ibuprofen 800 mg tablet TAKE 1 TABLET BY MOUTH EVERY 8 HOURS NEEDED 05/26 completed Not Available Not Available Not Available benzonata te 200 mg capsule TAKE 1 CAPSULE BY MOUTH THREE TIMES DAILY NEEDED FOR COUGH 04/17 completed Not Available Not Available Not Available hydrocodo ne 5 mg-acetam inophen 325 mg tablet TAKE 1 TABLET BY MOUTH EVERY 6 HOURS NEEDED FOR PAIN 10/24 completed Not Available Not Available Not Available phentermi ne 37.5 mg tablet Take 1 tablet every day by oral route for 30 days, for Class 2 Obesity, weight loss assistan ce. 2024 active Not Available Not Available Not Avai lable sulfameth oxazole 800 mg-trimet hoprim 160 mg tablet TAKE 1 TABLET BY MOUTH EVERY 12 HOURS 01/12 completed Not Available Not Available Not Available hydrocort isone 2.5 % topical cream with perineal applicato r APPLY A THIN LAYER TO THE AFFECTED AREA(S) BY TOPICAL ROUTE 2-4 TIMESDAI LY active pt is not taking (02/29/24 ) Not Available Not Available Not Available clindamyc in 1 % topical gel APPLY THIN LAYER TOPICALL Y TO THE AFFECTED AREA TWICE DAILY FOR 14 DAYS 11/22 completed Not Available Not Available Not Available baclofen 10 mg tablet TAKE 1 TABLET BY MOUTH THREE TIMES DAILY WITH FOOD OR MILK 01/12 completed Not Available Not Available Not Available doxycycli ne monohydra te 100 mg capsule Take 1 capsule twice a day by oral route for 30 days, for Hidraden itis. 2024 active Not Available Not Available Not Avai lable cephalexi n 500 mg capsule TAKE 1 CAPSULE BY MOUTH EVERY 12 HOURS 01/12 completed Not Available Not Available Not Available promethaz ine 25 mg tablet TAKE 1 TABLET BY MOUTH EVERY 6 HOURS NEEDED 05/26 completed Not Available Not Available Not Available ammonium lactate 12 % topical cream apply lotion to heels at night and place socks on 12/14 completed Not Available Not Available Not Available mupirocin 2 % topical ointment APPLY TOPICALL Y TO GROIN TWICE DAILY FOR ABSCESS 01/12 completed Not Available Not Available Not Available methylpre dnisolone 4 mg tablets in a dose pack FOLLOW PACKAGE DIRECTIO NS 04/17 completed Not Available Not Available Not Available fluticaso ne propionat e 50 mcg/actua tion nasal spray,ira pension [place] 1 spray every day by intranas al route for 30 days. 11/22 completed Not Available Not Available Not Available naproxen 500 mg tablet TAKE 1 TABLET BY MOUTH TWICE DAILY WITH MEALS 09/21 completed Not Available Not Available Not Available spironola ctone 50 mg tablet Take 1 tablet every day by oral route for 30 days. 2024 active Not Available Not Available Not Avai lable Heartburn Relief (famotidi ne) 10 mg tablet Take 1 tablet every day by oral route in the morning for 30 days. 09/21 completed Not Available Not Available Not Available levonorge strel 1.5 mg tablet 10/24 completed Not Available Not Available Not Available Nexplanon 68 mg subdermal implant Inject 1 implant by subcutan eous route for 30 days. 2022 active Placed 3 Not Available Not Available Not Available lidocaine 5 % topical ointment APPLY TO AFFECTED AREA(S) BY TOPICAL ROUTE 1-4 TIMES DAILY NEEDED active pt is not taking (02/29/24 ) Not Available Not Available Not Available FC2 Female Condom 10/24 completed Not Available Not Available Not Available Preparati on H Rapid Relief-Li docaine 5 %-0.25 %-14.4 %-15 % top cream Apply a thin layer to the affected area by topical route 2 -4 times daily 2023 active pt is not taking (02/29/24 ) Not Available Not Available Not Available Volnea (28) 0.15 mg-0.02 mg (21)/0.01 mg (5) tablet 10/24 completed Not Available Not Available Not Available ID NOW COVID-19 Test Kit TEST DIRECTED 10/24 completed Not Available Not Available Not Available Vitals Date Recorded Body height Body mass index (BMI) Body weight Respiratory rate Body temperature Oxygen saturation Oxygen saturation in Arterial blood by Pulse oximetry Heart rate Systolic And Diastolic Provider Name and Address Organization Details Last Updated DateTime 5 163.83 cm 38 kg/m2 978000. 79 g 20 /min 98 [degF] 97 % 97 % 77 /min 110/76 mm[Hg] ERWIN [place] [facility] 5 12:09:26 Date Recorded Body height Body mass index (BMI) Body weight Body temperature Respiratory rate Heart rate Systolic And Diastolic Provider Name and Address Organization Details Last Updated DateTime 4 163.83 cm 34.7 kg/m2 98140.8 7 g 98.8 [degF] 17 /min 103 /min 107/73 mm[Hg] Renea Florez RN [place] [facility] 4 15:23:14 Date Recorded Body height Body mass index (BMI) Body weight Body temperature Respiratory rate Heart rate Systolic And Diastolic Provider Name and Address Organization Details Last Updated DateTime 5 163.83 cm 37.7 kg/m2 607531. 85 g 98.3 [degF] 18 /min 98 /min 113/70 mm[Hg] Rox Londono MA [facility] 5 11:06:10 Date Recorded Body height Body mass index (BMI) Body weight Body temperature Respiratory rate Heart rate Systolic And Diastolic Provider Name and Address Organization Details Last Updated DateTime 4 163.83 cm 38.3 kg/m2 276574. 98 g 97.5 [degF] 16 /min 80 /min 120/79 mm[Hg] Amie Hernandez MA [facility] 4 11:13:38 Date Recorded Body height Body mass index (BMI) Body weight Respiratory rate Heart rate Body temperature Oxygen saturation Oxygen saturation in Arterial blood by Pulse oximetry Systolic And Diastolic Provider Name and Address Organization Details Last Updated DateTime 4 163.83 cm 38.7 kg/m2 836451. 65 g 18 /min 72 /min 98 [degF] 98 % 98 % 114/78 mm[Hg] ERWIN Savage [facility] 4 11:56:26 Social History Question Answer Notes LastModified by Organizat ion Details LastModified Time Tobacco Smoking Status Current Every Day Smoker Jennie Kinney MA [facility], [facility] 10/24/2020 15:26:41 Do You Have An Advance Directive? No Information n ot available 10/24/2020 What Is Your Level Of Caffeine Consumption? Moderate Information not available 04/18/2023 In The 14 Days Before Symptom Onset, Have You Had Close Contact With A Laboratory-confirm ed COVID-19 While That Case Was Ill? No Information n ot available 10/24/2020 In The 14 Days Before Symptom Onset, Have You Had Close Contact With A Person Who Is Under Investigation For COVID-19 While That Person Was Ill? No Information not available 10/24/2020 Have You Been To An Area Known To Be High Risk For COVID-19? No Information not available 10/24/2020 Are There Any Guns Present In Your Home? No Information not available 04/18/2023 What Was The Date Of Your Most Recent Tobacco Screening? 06/21/2024 Information not available 06/21/2024 What Is Your Current Pack Years? 10packyears Information not available 10/24/2020 Do You Use Protection During Sex? No Information not available 04/18/2023 What Is Your Relationship Status? Single Information not available 10/24/2020 Do You Use Your Seat Belt Or Car Seat Routinely? Yes Information not available 04/18/2023 Are You Sexually Active? Yes Information not available 10/24/2020 Do You Have Smoke And Carbon Monoxide Detectors In Your Home? Yes Information not available 10/24/2020 At What Age Did You Start Smoking Tobacco? 15 Information not available 10/24/2020 Are You Passively Exposed To Smoke? Yes Information no t available 10/24/2020 How Much Tobacco Do You Smoke? 0.5 PPD Information not available 10/24/2020 Do You Use Sunscreen Routinely? Yes Information not available 04/18/2023 Has Tobacco Cessation Counseling Been Provided? Yes Information not available 03/16/2022 On What Date Was Tobacco Cessation Counseling Provided? 06/21/2024 Information not available 06/21/2024 Sex: Female Functional Status Question Answer Note LastModified by Organizat ion Details LastModified Time Do you use any illicit or recreational drugs? Yes marijuana Information not available 10/24/2020 Do you or have you ever used any other forms of tobacco or nicotine? No [email or web address] Information not available 01/30/2024 What is your level of alcohol consumption? Occasional Information not available 10/24/2020 Are you currently employed? No Information not available 10/24/2020 Mental Status Question Answer Note LastModified by Organization D etails LastModified Time Do you feel stressed (tense, restless, nervous, or anxious, or unable to sleep at night)? [id number] Information not available 04/18/2023 Family History Relationship Description Onset Age of this Age Resolved Age Notes LastModified by Organization Details LastModified Time Mother Hypertensive disorder [email or web address] Not available 2020 15:25:45 Notes:11/23/23, 01/30/24, 02/14 07/08 Medical History Condition Response Coronary Artery Disease N Other N High Blood Pressure N Atrial Fibrillation N Kidney or Bladder Problems N Thyroid Problems N GI Problems N Depression N COPD N Blood Clots N Skin Problems N Anemia N Heart Attack (CO) N Anxiety Disorder N Diabetes N Muscle, Joint, or Bone Problems N Seizures/Epilepsy N Acid Reflux (GERD) N Cancer N Stroke N Asthma N Allergies N High Cholesterol N Hepatitis N Liver Disease N Headaches N Heart Failure N Osteoporosis N Gynecological History Statement/Question Response Flow Heavy Date of LMP 03/07/2023 Menses Monthly N Date of Last Pap Smear 04/26/2022 Duration of Flow (days) 7 Current Control Method Implant LMP Unknown Obstetrics History GPAL:G 5 P 0 0 0 2 Type Value Living 2 Total 5 Immunizations Vaccine Type Date Status Note Provider Name and Address Organization Details Recorded Time Hib, unspecified formulation 10/09/18 96 completed KAILEE PITT MD Attn: Accounting,[address] [place], [address], [place] 12/14/2022 12:30:40 IPV 08/31/19 00 completed KAILEE PITT MD Attn: Accounting,[address] [facility], [place], [address], [place] 12/14/2022 12:30:40 MMR 08/31/19 00 completed KAILEE PITT MD Attn: Accounting,[address] [place], [address], [place] 12/14/2022 12:30:40 MMR 10/09/18 96 completed KAILEE PITT MD Attn: Accounting,[address] [facility], [place], [address], [place] [facility] 12/14/2022 12:30:40 Tdap 11/07/19 09 completed KAILEE PITT MD Attn: Accounting,[address] [facility], [place], [address], [place] [facility] 12/14/2022 12:30:40 Hep B, unspecified formulation 04/21/18 96 completed KAILEE PITT MD Attn: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
[2024-11-30 10:11] LABS: EDINFLUASCREEN Negative (Negative); EDINFLUBSCREEN Negative (Negative)
[2024-11-30 10:11] LABS: EDCOVIDSCREEN Negative (Negative)
--- NOTE | 2024-11-30 10:17 | ED.URI ---
HPI - URI/Sore Throat General Chief Complaint: Upper Respiratory Infection Stated Complaint: Fever/Nausea/Diarrhea/Cough Time Seen by Provider: 11/30/24 09:56 Source: patient and RN notes reviewed Mode of arrival: ambulatory Limitations: no limitations History of Present Illness HPI Narrative: 29-year-old female patient presents today with a 3 day history of fever with a T-max of 102.3?, body aches, nasal congestion, nausea, cough, diarrhea. Patient has had 4 episodes of diarrhea per day without blood or mucus. Denies shortness of breath. 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 Her kids were also sick with similar symptoms approximately 10 days ago. She has been taking ibuprofen and Tylenol. Related Data Allergies Allergy/AdvReac Type Severity Reaction Status Date / Time No Known Allergies Allergy Verified 11/30/24 09:48 PMF Past Medical History Medical History Ruptured lumbar disc Ruptured disc, cervical Spinal stenosis DDD (degenerative disc disease) Surgical History Surgical History Previous section X2 Family History Family History Mother Hypertension Social History Social History Smoking packs per day: 0.5 Smoking cigarettes per day: 10.0 Years smoked: 10 Smoking pack-years: 5.00 Smoking status: Current every day smoker Tobacco type: cigarettes Alcohol intake: current Alcohol use details: social Substance use: current Substance use type: marijuana Living arrangements: with family Gender identity (if verbalized by the patient): Female Comments At time of signature, I have reviewed and agree with nursing past medical, surgical, social and family history unless otherwise noted. Please see nursing chart for further information. There is no relevant family history pertinent to the presenting complaint Exam Narrative: GENERAL: Mildly-appearing, well-nourished, and in no acute distress. HEAD: Normocephalic, atraumatic. EYES: EOMI. No redness or drainage. Conjunctivae normal. ENT: Mucous membranes pink and moist. Nares clear. No rhinorrhea. TMs normal bilaterally. Throat normal. Uvula midline. NECK: Normal AROM. Supple. No lymphadenopathy. CHEST: No respiratory distress. Clear to auscultation. HEART: Regular rate and rhythm. No murmur appreciated. ABDOMEN: Soft, nontender, nondistended, normal active bowel sounds. EXTREMITIES: Normal range of motion. No edema. SKIN: Warm, dry, no rash. Capillary refill normal. Normal skin turgor. NEURO: No focal deficits. Alert and oriented x3. Gait steady. PSYCH: Normal affect. No signs of depression or anxiety. Course Course Level of Care: Express Care Visit Vital Signs Vital signs: Vital Signs Temperature 97.2 F L 11/30/24 09:44 Pulse Rate 86 11/30/24 09:44 Respiratory Rate 18 11/30/24 09:44 Blood Pressure 122/59 L 11/30/24 09:44 Pulse Oximetry 99 11/30/24 09:44 Oxygen Delivery Room Air 11/30/24 09:44 Temperature 97.2 F L 11/30/24 09:44 Pulse Rate 86 11/30/24 09:44 Respiratory Rate 18 11/30/24 09:44 Blood Pressure 122/59 L 11/30/24 09:44 Pulse Oximetry 99 11/30/24 09:44 Oxygen Delivery Room Air 11/30/24 09:44 Reviewed MDM - URI/Sore Throat MDM Narrative Medical decision making narrative: 29-year-old female patient presents today with a 3 day history of fever with a T-max of 102.3?, body aches, nasal congestion, nausea, cough, diarrhea. Patient has had 4 episodes of diarrhea per day without blood or mucus. Denies shortness of breath. 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 Patient is mildly ill appearing, but exam is otherwise negative. COVID and influenza swabs are negative. Symptoms likely viral in etiology. Discussed [id number] medication use and duration of illness. Will prescribe some Zofran for her nausea. Anticipatory guidance given. Vital signs stable. Differential Diagnosis Differential diagnosis: Likely upper respiratory infection, viral infection, influenza and other (COVID 19, gastroenteritis) Lab Data Attestation: I reviewed the patient's lab results. Labs: Lab Results 11/30/24 11/30/24 Range/Units 10:09 10:10 POC Influenza A Ag Negative (Negative) POC Influenza B Ag Negative (Negative) POC SARS CoV-2 Ag Negative (Negative) Critical Care Time Critical Care Time Critical Care Time: No Discharge Plan Discharge Clinical Impression: Viral syndrome Patient Disposition: Home Condition: Stable Instructions: Acute Diarrhea (ED), Viral Syndrome (ED) Additional Instructions: Your COVID-19 and influenza swabs are negative today. Your Symptoms are likely due to a viral illness, which is not treated with antibiotics. Virus symptoms can last for up to 7-10days. Take Tylenol or ibuprofen for pain or fever. Take the Zofran for nausea. Rest and stay hydrated with water and fluids that have electrolytes.. Follow up with your PCP in 5 days if symptoms are not improving. Go to the ER immediately if you develop shortness of breath, difficulty swallowing, or any other concerning symptoms. Patient Language: Upper Sorbian Prescriptions: New ondansetron 8 mg tablet,disintegrating 8 mg PO Q4-6H PRN (Reason: nausea and vomiting) Qty: 20 0RF Follow-up/Referrals: UNKNOWN,DOCTOR [Primary Care Provider] Stand Alone Forms: Work/School Release IP Time of Disposition: 10:24
== END 2024-11-30 10:27 | disposition home or self-care (01) ==
PROVIDERS: Emergency Provider Nurse Practitioner
DX: B34.9 Viral infection, unspecified (principal); Z20.822 Contact with and (suspected) exposure to COVID-19; F17.210 Nicotine dependence, cigarettes, uncomplicated; F12.90 Cannabis use, unspecified, uncomplicated; M48.00 Spinal stenosis, site unspecified
CPT/HCPCS: 87426; 87804; 99213; G0463